=== PATIENT | male | born 1975 | race American Indian/Alaskan Native ===

== ENCOUNTER 2017-08-03 02:18 | Emergency (ER) | payer OTHER ==
[2017-08-03] MEDS ORDERED: BOOSTRIX IM ONE (02:55)
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
[2017-08-03] MEDS ORDERED: XYLOCAINE 1%/ EPI 1:100,000 INFILTRATI NR (04:00)
[2017-08-03] MEDS ORDERED: NORCO 5/325 PO ONE ×2 (05:21→08:13)
[2017-08-03] MEDS ORDERED: CATAPRES ONE (06:23)
[2017-08-03] MEDS ORDERED: TRIPLE ANTIBIOTIC TP ONE (08:12)
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
[2017-08-03 09:52] VITALS: BP 119/78
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
== END 2017-08-03 08:55 | disposition home or self-care (01) ==
LOC: ED 02:18
DX: S63.501A Unspecified sprain of right wrist, initial encounter (principal); F17.200 Nicotine dependence, unspecified, uncomplicated; I10 Essential (primary) hypertension; V49.59XA Passenger injured in collision with other motor vehicles in traffic accident, initial encounter; Y93.89 Activity, other specified; Y92.89 Other specified places as the place of occurrence of the external cause; Y99.8 Other external cause status
CPT/HCPCS: 70450; 72125; 90471; 90715; A6250